=== PATIENT | male | born 1990 | race Caucasian/White ===

== ENCOUNTER 2018-12-26 14:42 | Inpatient (IN) | payer OTHER ==
[2018-12-26 17:15] VITALS: BMI 20.2
--- NOTE | 2018-12-26 18:30 | HP ---
COWS - Scale Resting Pulse: 0= [place] 80 or Below Sweatin=Flushed/Facial Moisture Restless Observation: 1= Difficult to Sit Still Pupil Size: 1= Pupils >than Normal Bone or Joint Aches: 1= Mild Discomfort Runny Nose/ Eye Tearin= Nasal Congestion GI Upset > 30mins: 2= Nausea/Diarrhea Tremor Observation: 2= Slight Tremor Visible Yawning Observation: 1= 1-2x During Session Anxiety or Irritability: 1=Feels Anxious/Irritable Goose Flesh Skin: 0=Smooth Skin COWS Score: 12 CIWA Score Nausea/Vomitin Muscle Tremors: 2 Anxiety: 2 Agitation: 2 Paroxysmal Sweats: 2 Orientation: 0-Oriented Tacttile Disturbances: 1-Very Mild Itch/Numbness Auditory Disturbances: 0-None Visual Disturbances: 0-None Headache: 2-Mild CIWA-Ar Total Score: 13 - Admission Criteria OASAS Guidelines: Admission for Medically Managed Detox: Requires at least one of the followin. CIWA greater than 12 2. Seizures within the past 24 hours 3. Delirium tremens within the past 24 hours 4. Hallucinations within the past 24 hours 5. Acute intervention needed for co occurring medical disorder 6. Acute intervention needed for co occurring psychiatric disorder 7. Severe withdrawal that cannot be handled at a lower level of care (continued vomiting, continued diarrhea, abnormal vital signs) requiring intravenous medication and/or fluids 8. Patient presents the following: CIWA greater than 12 Admission Criteria Met: Admission criteria met Admission ROS [facility] Chief Complaint: I m here for detox from heroine, cocaine and xanax Allergies/Adverse Reactions: Allergies Allergy/AdvReac Type Severity Reaction Status Date / Time No Known Allergies Allergy Verified 12/26/18 17:39 History of Present Illness: 28 y/o male presents for detox from xanax and heroine. He reports most recent detox was at [facility] 5 months ago. Exam Limitations: No Limitations - Ebola screening Have you traveled outside of the country in the last 21 days: No (N) Have you had contact with anyone from an Ebola affected area: No Have you been sick,other than usual withdrawal symptoms: No Do you have a fever: No - Review of Systems Constitutional: Chills, Loss of Appetite, Changes in sleep, Unintentional Wgt. Loss EENT: reports: Nose Congestion, Mouth Pain Respiratory: reports: No Symptoms reported Cardiac: reports: No Symptoms Reported GI: reports: Nausea, Poor Appetite, Abdominal cramping : reports: No Symptoms Reported Musculoskeletal: reports: Back Pain, Muscle Pain, Muscle Weakness Integumentary: reports: Flushing Neuro: reports: Headache, Tremors Endocrine: reports: Unexplained Weight Loss Hematology: reports: No Symptoms Reported Psychiatric: reports: No Sypmtoms Reported, Orientated x3 Other Systems: Reviewed and Negative Patient History - Patient Medical History Hx Anemia: No Hx Asthma: No Hx Chronic Obstructive Pulmonary Disease (COPD): No Hx Cancer: No Hx Cardiac Disorders: No Hx Congestive Heart Failure: No Hx Hypertension: No Hx Hypercholesterolemia: No Hx Pacemaker: No HX Cerebrovascular Accident: No Hx Seizures: No Hx Dementia: No Hx Diabetes: No Hx Gastrointestinal Disorders: No Hx Liver Disease: No Hx Genitourinary Disorders: No Hx Sexually Transmitted Disorders: No Hx Renal Disease (ESRD): No Hx Thyroid Disease: No Hx Human Immunodeficiency Virus (HIV): No Hx Hepatitis C: No Hx Depression: No Hx Suicide Attempt: No Hx Bipolar Disorder: No Hx Schizophrenia: No - Patient Surgical History Past Surgical History: Yes Hx Neurologic Surgery: No Hx Cataract Extraction: No Hx Cardiac Surgery: No Hx Lung Surgery: No Hx Breast Surgery: No Hx Breast Biopsy: No Hx Abdominal Surgery: No Hx Appendectomy: No Hx Cholecystectomy: No Hx Genitourinary Surgery: No Hx Section: No Hx Orthopedic Surgery: Yes (r/t impaired circulation to leg during an overdose) Anesthesia Reaction: No - PPD History Previous Implant?: Yes Documented Results: Negative w/o proof Implanted On Prior R Admission?: No PPD to be Administered?: Yes - Smoking Cessation Smoking history: Current every day smoker Have you smoked in the past 12 months: Yes Aproximately how many cigarettes per day: 4 Hx Chewing Tobacco Use: No Initiated information on smoking cessation: Yes 'Breaking Loose' booklet given: 12/26/18 - Substances abused Heroin Substance route: Injection Frequency: Daily Amount used: 10 BAGS Age of first use: 21 Date of last use: 12/26/18 Alprazolam (Xanax) Substance route: Oral Frequency: Daily Amount used: 6 MG Age of first use: 20 Date of last use: 12/26/18 Cocaine Substance route: Smoking Frequency: Daily Amount used: 1 BAG Age of first use: 17 Date of last use: 12/26/18 Family Disease History - Family Disease History Family History: Denies Admission Physical Exam [facility] - Vital Signs Vital Signs: Vital Signs - 24 hr 12/26/18 16:56 Temperature 96.9 F L Pulse Rate 63 Respiratory 18 Rate Blood Pressure 98/66 - Physical General Appearance: Yes: No Apparent Distress HEENTM: Yes: Hearing grossly Normal, Normal ENT Inspection, Normocephalic, Normal Voice Respiratory: Yes: Chest Non-Tender, Lungs Clear, Normal Breath Sounds, No Respiratory Distress, No Accessory Muscle Use Neck: Yes: No masses,lesions,Nodules, Supple Breast: Yes: Breast Exam Deferred Cardiology: Yes: Regular Rhythm, Regular Rate, S1, S2 Abdominal: Yes: Normal Bowel Sounds, Non Tender, Flat, Soft Genitourinary: Yes: Within Normal Limits Back: Yes: Normal Inspection Musculoskeletal: Yes: full range of Motion, Gait Steady, Muscle Pain, Other ( LLL well healed surgical scar) Extremities: Yes: Tremors Neurological: Yes: molder floor II-XII NML intact, Fully Oriented, Alert, Normal Mood/ Affect, Normal Response Integumentary: Yes: Clammy, Track Reynolds - Diagnostic (1) Benzodiazepine abuse Current Visit: Yes Status: Acute (2) Heroin dependence Current Visit: Yes Status: Acute (3) Nicotine dependence Current Visit: Yes Status: Acute Qualifiers: Nicotine product type: cigarettes Substance use status: uncomplicated Qualified Code(s): F17.210 - Nicotine dependence, cigarettes, uncomplicated Cleared for Admission [facility] - Detox or Rehab [facility] Level of Care: Medically Managed Detox Regimen/Protocol: Methadone/Valium Breathalyzer - Breathalyzer Breathalyzer: 0 Urine Drug Screen - Test Device Lot number: [id number] Expiration date: 08/27/20 - Control Is test valid?: Yes - Results Drug screen NEGATIVE: No Urine drug screen results: NICHOLAS-Cocaine, FEN-Fentanyl, MOP-Opiates, MTD-Methadone , BZO-Benzodiazepines, BUP-Suboxone Inpatient Rehab Admission - Rehab Decision to Admit Inpatient rehab admission?: No
[2018-12-26] MEDS ORDERED: cloNIDine HCL 0.1 MG TABLET PO PRN (18:36)
[2018-12-26] MEDS ORDERED: MAGNESIUM CITRATE 300 ML BOTTLE PO PRN (18:36)
[2018-12-26] MEDS ORDERED: MELATONIN 5 MG TABLETS PO PRN (18:36)
[2018-12-26] MEDS ORDERED: MAG HYDROX/AL HYDROX/SIMETH 30 ML UNIT-DOSE CUP PO PRN (18:36)
[2018-12-26] MEDS ORDERED: NICOTINE POLACRILEX 2 MG GUM BUC PRN (18:36)
[2018-12-26] MEDS ORDERED: NALOXONE HCL 0.4 MG/ML VIAL IVPUSH PRN (18:36)
[2018-12-26] MEDS ORDERED: METHOCARBAMOL 500 MG TABLET PO PRN (18:36)
[2018-12-26] MEDS ORDERED: clonazePAM 0.5 MG TABLET PO PRN (18:36)
[2018-12-26] MEDS ORDERED: MENTHOL/PHENOL 1 EACH UD MM PRN (18:36)
[2018-12-26] MEDS ORDERED: diazePAM 5 MG TABLET PO ONE (18:36)
[2018-12-26] MEDS ORDERED: BISMUTH SUBSALICYLATE 524 MG/30 ML UD PO PRN (18:36)
[2018-12-26] MEDS ORDERED: MAGNESIUM HYDROX 2400MG/30ML ORAL SUSPENSION 30 ML CUP PO PRN (18:36)
[2018-12-26] MEDS ORDERED: ACETAMINOPHEN 325 MG TABLET (FP) PO PRN (18:36)
[2018-12-26] MEDS ORDERED: METHADONE HCL 10 MG TABLET (FOR DETOX USE ONLY) PO ONE (23:00)
[2018-12-26] MEDS: THIAMINE HCL 100 MG TABLET (FP) PO SCH (23:37)
[2018-12-26] MEDS: diazePAM 5 MG TABLET PO SCH (23:37)
[2018-12-27] MEDS: diazePAM 5 MG TABLET PO SCH ×3 (05:53→22:09)
[2018-12-27 09:29] LABS: BILIRUBIN,TOTAL 0.4 mg/dL (0.2-1); BLOOD UREA NITROGEN 8.2 mg/dL (7-18); CALCIUM 8.3 mg/dL (8.5-10.1); CREATININE 0.9 mg/dL (0.55-1.3); POTASSIUM 4.2 mmol/L (3.5-5.1); TOT PROT 6.7 g/dl (6.4-8.2)
[2018-12-27 09:47] LABS: HEMATOCRIT 41.5 % (35.4-49); HEMOGLOBIN 14.2 GM/dL (11.7-16.9); MCH 28.4 pg (25.7-33.7); MCHC 34.3 g/dl (32.0-35.9); MEAN CELL VOLUME 82.8 fl (80-96); MEAN PLT VOLUME 7.5 fl (7.5-11.1); RBC 5.01 M/mm3 (4.00-5.60); RDW 13.2 % (11.9-15.9); WHITE BLOOD COUNT 4.8 K/mm3 (4.0-10.0)
[2018-12-27] MEDS ORDERED: METHADONE HCL 5 MG TABLET (FOR DETOX USE ONLY) PO ONE (10:00)
[2018-12-27 10:14] LABS: PLATELET COUNT 337 K/MM3 (134-434)
[2018-12-27 10:20] LABS: URINE APPEARANCE TURBID; URINE BILIRUBIN NEGATIVE (NEGATIVE); URINE COLOR YELLOW; URINE GLUCOSE (UA) NEGATIVE (NEGATIVE); URINE KETONE NEGATIVE (NEGATIVE); URINE LEUK ESTERASE NEGATIVE (NEGATIVE); URINE NITRITE NEGATIVE (NEGATIVE); URINE PROTEIN NEGATIVE (NEGATIVE); URINE UROBILINOGEN 0.2 mg/dL (0.2-1.0)
[2018-12-27] MEDS: PRENATAL VITAMINS W/ FOLIC ACID TABLET (FP) PO SCH (10:58)
[2018-12-27] MEDS: IBUPROFEN 400 MG TABLET (FP) PO PRN ×2 (12:13→22:10)
[2018-12-27] MEDS: AMOXICILLIN 500 MG CAPSULE (FP) PO SCH ×2 (13:59→22:09)
--- NOTE | 2018-12-27 14:53 | PN ---
S CIWA - CIWA Score Nausea/Vomitin Muscle Tremors: 3 Anxiety: 3 Agitation: 3 Paroxysmal Sweats: 3 Orientation: 0-Oriented Tacttile Disturbances: 0-None Auditory Disturbances: 0-None Visual Disturbances: 0-None Headache: 0-None Present CIWA-Ar Total Score: 14 [facility] COWS - Scale Resting Pulse: 0= [place] 80 or Below Sweatin= Chills/Flushing Restless Observation: 3= Extraneous Movement Pupil Size: 0= Normal to Room Light Bone or Joint Aches: 2= Severe Diffuse Aches Runny Nose/ Eye Tearin= Runny Nose/Eyes GI Upset > 30mins: 2= Nausea/Diarrhea Tremor Observation of Outstretched Hands: 2= Slight Tremor Visible Yawning Observation: 0= None Anxiety or Irritability: 2=Irritable/Anxious Goose Flesh Skin: 0=Smooth Skin COWS Score: 14 [facility] Progress Note (SOAP) Subjective: Anxious, perfuse sweating. Patient c/o gum pain. Objective: 12/27/18 14:49 Last Vital Signs Temp Pulse Resp BP Pulse Ox 98.1 F 60 17 127/89 12/27/18 14:30 12/27/18 14:30 12/27/18 14:30 12/27/18 14:30 PE: Mouth: moist mucous membrane, gum surrounding wisdom teeth bilateral bottom is moderately swollen, no drainage/discharge noted, no cavities noted Laboratory Tests 12/27/18 12/27/18 12/27/18 07:30 07:30 07:30 WBC 4.8 RBC 5.01 Hgb 14.2 Hct 41.5 MCV 82.8 MCH 28.4 MCHC 34.3 RDW 13.2 Plt Count 337 MPV 7.5 Sodium 140 Potassium 4.2 Chloride 106 Carbon Dioxide 29 Anion Gap 5 L BUN 8.2 Creatinine 0.9 Est GFR (CKD-EPI)AfAm 136.14 Est GFR (CKD-EPI)NonAf 117.46 Random Glucose 103 Calcium 8.3 L Total Bilirubin 0.4 AST 11 L ALT 21 Alkaline Phosphatase 67 Total Protein 6.7 Albumin 3.0 L Urine Color Urine Appearance Urine pH Ur Specific [place] Urine Protein Urine Glucose (UA) Urine Ketones Urine Blood Urine Nitrite Urine Bilirubin Urine Urobilinogen Ur Leukocyte Esterase RPR Titer Nonreactive 12/27/18 08:40 WBC RBC Hgb Hct MCV MCH MCHC RDW Plt Count MPV Sodium Potassium Chloride Carbon Dioxide Anion Gap BUN Creatinine Est GFR (CKD-EPI)AfAm Est GFR (CKD-EPI)NonAf Random Glucose Calcium Total Bilirubin AST ALT Alkaline Phosphatase Total Protein Albumin Urine Color Yellow Urine Appearance Turbid Urine pH 6.0 Ur Specific [place] 1.028 Urine Protein Negative Urine Glucose (UA) Negative Urine Ketones Negative Urine Blood Negative Urine Nitrite Negative Urine Bilirubin Negative Urine Urobilinogen 0.2 Ur Leukocyte Esterase Negative RPR Titer Labs reviewed Assessment: 12/27/18 14:53 Withdrawal symptoms Noted with dental infection Plan: Continue detox Encouraged PO water intake Dental infection: tylenol/motrin prn pain Peridex solution 15ml bid swish and spit Amoxicillin 500mg PO q8hr TID x 7 days Instructed to follow up with his Dentist post discharge
[2018-12-27] MEDS: CHLORHEXIDINE GLUCONATE 0.12% 15ML CUP MM SCH ×2 (15:08→22:10)
[2018-12-27] MEDS: ACETAMINOPHEN 325 MG TABLET (FP) PO PRN (15:10)
[2018-12-27] MEDS: THIAMINE HCL 100 MG TABLET (FP) PO SCH (22:10)
--- NOTE | 2018-12-28 00:08 | EKG ---
Test Reason : Blood Pressure : / mmHG Vent. Rate : 058 BPM Atrial Rate : 058 BPM P-R Int : 142 ms QRS Dur : 096 ms QT Int : 390 ms P-R-T Axes : 042 091 042 degrees QTc Int : 382 ms SINUS BRADYCARDIA RIGHTWARD AXIS BORDERLINE ECG NO PREVIOUS ECGS AVAILABLE Confirmed by MD Norma, [place] ([id number]) on 12/28/2018 12:07:33 AM Referred By: Kenny Sullivan Confirmed By:London Green MD
[2018-12-28] MEDS: AMOXICILLIN 500 MG CAPSULE (FP) PO SCH ×3 (05:53→22:42)
[2018-12-28] MEDS: IBUPROFEN 400 MG TABLET (FP) PO PRN ×2 (05:55→13:27)
[2018-12-28] MEDS: diazePAM 5 MG TABLET PO PRN ×3 (06:00→18:07)
[2018-12-28] MEDS ORDERED: METHADONE HCL 10 MG TABLET (FOR DETOX USE ONLY) PO ONE (10:00)
[2018-12-28] MEDS: CHLORHEXIDINE GLUCONATE 0.12% 15ML CUP MM SCH (10:05)
[2018-12-28] MEDS: diazePAM 5 MG TABLET PO SCH ×2 (10:38→22:44)
[2018-12-28] MEDS: PRENATAL VITAMINS W/ FOLIC ACID TABLET (FP) PO SCH (10:38)
[2018-12-28] MEDS: ACETAMINOPHEN 325 MG TABLET (FP) PO PRN ×2 (10:40→18:07)
[2018-12-28] MEDS ORDERED: CHLORHEXIDINE GLUCONATE 118 ML MOUTHWASH MM SCH (12:30)
[2018-12-28] MEDS ORDERED: LIDOCAINE VISCOUS 2% ORAL/TOP 20 ML UNIT-DOSE CUP MM PRN (12:30)
--- NOTE | 2018-12-28 12:33 | PN ---
[facility] CIWA - CIWA Score Nausea/Vomitin-No Nausea/No Vomiting Muscle Tremors: 2 Anxiety: 1-Mildly Anxious Agitation: 1-Slight > Activity Paroxysmal Sweats: 3 Orientation: 0-Oriented Tacttile Disturbances: 0-None Auditory Disturbances: 0-None Visual Disturbances: 0-None Headache: 0-None Present CIWA-Ar Total Score: 7 [facility] COWS - Scale Resting Pulse: 0= [place] 80 or Below Sweatin=Flushed/Facial Moisture Restless Observation: 0= Sits Still Pupil Size: 0= Normal to Room Light Bone or Joint Aches: 1= Mild Discomfort Runny Nose/ Eye Tearin= Nasal Congestion GI Upset > 30mins: 0= None Tremor Observation of Outstretched Hands: 1= Tremor [place], Not Seen Yawning Observation: 1= 1-2x During Session Anxiety or Irritability: 1=Feels Anxious/Irritable Goose Flesh Skin: 0=Smooth Skin COWS Score: 7 [facility] Progress Note (SOAP) Subjective: sweats pain when I swallow due to my infection Objective: 12/28/18 12:32 Vital Signs Temperature 97.0 F L 12/28/18 09:20 Pulse Rate 63 12/28/18 09:20 Respiratory Rate 17 12/28/18 09:20 Blood Pressure 132/90 12/28/18 09:20 O2 Sat by Pulse Oximetry (%) Laboratory Tests 12/27/18 12/27/18 12/27/18 07:30 07:30 07:30 WBC 4.8 RBC 5.01 Hgb 14.2 Hct 41.5 MCV 82.8 MCH 28.4 MCHC 34.3 RDW 13.2 Plt Count 337 MPV 7.5 Sodium 140 Potassium 4.2 Chloride 106 Carbon Dioxide 29 Anion Gap 5 L BUN 8.2 Creatinine 0.9 Est GFR (CKD-EPI)AfAm 136.14 Est GFR (CKD-EPI)NonAf 117.46 Random Glucose 103 Calcium 8.3 L Total Bilirubin 0.4 AST 11 L ALT 21 Alkaline Phosphatase 67 Total Protein 6.7 Albumin 3.0 L Urine Color Urine Appearance Urine pH Ur Specific [place] Urine Protein Urine Glucose (UA) Urine Ketones Urine Blood Urine Nitrite Urine Bilirubin Urine Urobilinogen Ur Leukocyte Esterase RPR Titer Nonreactive 12/27/18 08:40 WBC RBC Hgb Hct MCV MCH MCHC RDW Plt Count MPV Sodium Potassium Chloride Carbon Dioxide Anion Gap BUN Creatinine Est GFR (CKD-EPI)AfAm Est GFR (CKD-EPI)NonAf Random Glucose Calcium Total Bilirubin AST ALT Alkaline Phosphatase Total Protein Albumin Urine Color Yellow Urine Appearance Turbid Urine pH 6.0 Ur Specific [place] 1.028 Urine Protein Negative Urine Glucose (UA) Negative Urine Ketones Negative Urine Blood Negative Urine Nitrite Negative Urine Bilirubin Negative Urine Urobilinogen 0.2 Ur Leukocyte Esterase Negative RPR Titer aaox3 ambulating no acute distress Assessment: 12/28/18 12:32 mild withdrawal sx Plan: continue detox increase fluids lidocaine s/s prn motrin 800mg tid prn d/c in am
[2018-12-28] MEDS: THIAMINE HCL 100 MG TABLET (FP) PO SCH (22:42)
[2018-12-29] MEDS ORDERED: diazePAM 5 MG TABLET PO SCH (06:00)
[2018-12-29] MEDS ORDERED: METHADONE HCL 5 MG TABLET (FOR DETOX USE ONLY) PO ONE (06:00)
[2018-12-29] MEDS: AMOXICILLIN 500 MG CAPSULE (FP) PO SCH ×2 (07:24→12:59)
--- NOTE | 2018-12-29 09:22 | DS ---
[facility] Detox Discharge Summary Admission Date: 12/26/18 - History Present History: Opioid Dependence, Sedative Dependence - Physical Exam Results Vital Signs: Vital Signs Temperature 96.4 F L 12/29/18 07:37 Pulse Rate 53 L 12/29/18 07:37 Respiratory Rate 16 12/29/18 07:37 Blood Pressure 123/87 12/29/18 07:37 O2 Sat by Pulse Oximetry (%) - Treatment Hospital Course: Detox Protocol Followed, Detoxed Safely, Responded well, Discharged Condition Good, Rehab Referral Accepted - Medication Discharge Medications: Ambulatory Orders NK [No Known Home Medication] 12/26/18 - Diagnosis (1) Benzodiazepine abuse Current Visit: Yes Status: Chronic (2) Heroin dependence Current Visit: Yes Status: Chronic (3) Nicotine dependence Current Visit: Yes Status: Chronic Qualifiers: Nicotine product type: cigarettes Substance use status: uncomplicated Qualified Code(s): F17.210 - Nicotine dependence, cigarettes, uncomplicated - AMA Did Patient Leave Against Medical Advice: No (pt referred [facility])
[2018-12-29] MEDS ORDERED: ONDANSETRON *ODT* 4 MG TABLET SL PRN (09:23)
[2018-12-29 09:30] VITALS: BP 113/76; PULSE 54; TEMP 97.9
[2018-12-29] MEDS: PRENATAL VITAMINS W/ FOLIC ACID TABLET (FP) PO SCH (10:42)
[2018-12-29] MEDS: diazePAM 5 MG TABLET PO PRN (10:45)
[2018-12-29] MEDS: IBUPROFEN 400 MG TABLET (FP) PO PRN (10:45)
== END 2018-12-29 13:04 | disposition other institution (70) | DRG 773 ==
LOC: YASAS 14:42 → Y6N 19:08
PROVIDERS: ADMIT Surgery; ATTEND Surgery
PROC: HZ2ZZZZ Detoxification Services for Substance Abuse Treatment (ICD-10-PCS; principal; 2018-12-26)
DX: F11.23 Opioid dependence with withdrawal (principal); F13.20 Sedative, hypnotic or anxiolytic dependence, uncomplicated; F14.20 Cocaine dependence, uncomplicated; F17.210 Nicotine dependence, cigarettes, uncomplicated; K04.7 Periapical abscess without sinus
CPT/HCPCS: 36415; 80053; 81003; 85027; 86593; 93005; 93010

== ENCOUNTER 2018-12-29 13:17 | Inpatient (IN) | payer OTHER ==
[2018-12-29] MEDS ORDERED: guaiFENesin 200 MG/10 ML 10 ML UNIT-DOSE CUPS PO PRN (14:25)
[2018-12-29] MEDS ORDERED: MAGNESIUM HYDROX 2400MG/30ML ORAL SUSPENSION 30 ML CUP PO PRN (14:25)
[2018-12-29] MEDS ORDERED: MAGNESIUM CITRATE 300 ML BOTTLE PO PRN (14:25)
[2018-12-29] MEDS ORDERED: MAG HYDROX/AL HYDROX/SIMETH 30 ML UNIT-DOSE CUP PO PRN (14:25)
[2018-12-29] MEDS ORDERED: LOPERAMIDE HCL 2 MG CAPSULE PO PRN (14:25)
[2018-12-29] MEDS ORDERED: MENTHOL/PHENOL 1 EACH UD MM PRN (14:25)
[2018-12-29] MEDS ORDERED: ACETAMINOPHEN 325 MG TABLET (FP) PO PRN (14:25)
[2018-12-29] MEDS ORDERED: P-EPHED 60MG/TRIPROLIDI 2.5MG TABLET PO PRN (14:25)
--- NOTE | 2018-12-29 14:25 | HP ---
[facility] Rehab Assess/Revision - Admission History Admitted to Rehab from: [address] - Vital signs Vital Signs: Vital Signs Period Temp Pulse Resp BP Sys/Arellano Pulse Ox Last 24 Hr 98.2 F 91 18 107/63 - Findings Detox History & Physical reviewed: Yes Concur with findings: Yes Inpatient Rehab Admission - Rehab Decision to Admit Inpatient rehab admission?: Yes - Initial Determination Are CD services needed?: Yes Free of communicable disease: Yes Not in need of hospitalization: Yes - Rehab Admission Criteria Previous failed treatment: Yes Poor recovery environment: Yes Comorbidities: Yes Lacks judgement: Yes Patient is meeting Inpatient Rehab admission criteria:: Yes
[2018-12-29] MEDS ORDERED: LIDOCAINE VISCOUS 2% ORAL/TOP 20 ML UNIT-DOSE CUP MM PRN (14:28)
--- NOTE | 2018-12-29 15:39 | PN ---
[facility] Progress Note Note: PT WAS ADMITTED TO REHAB TODAY FROM [facility]. PT REPORTS HE IS ON SUBOXONE 12 MG SL DAILY AT [facility] WITH DR. NI KELLY . LAST DOSED ON 12/25/18 AND CAME INTO [facility]/DETOX 12/26/18. PT NOW REQUESTING TO RESTART HIS SUBOXONE. PT IS ALERT O X 3. NAD. D/W PT PROTOCOL FOR RESTARTING SUBOXONE AND PT VERBALIZED UNDERSTANDING AND SIDE EFFECTS OF PRECIPITATED WITHDRAWAL SX SOON AFTER METHADONE TREATMENT AND WILLING TO WAIT THE COURSE. Vital Signs - 24 hr 12/29/18 14:02 Temperature 98.2 F Pulse Rate 91 H Respiratory 18 Rate Blood Pressure 107/63 PLAN:MONITOR W/S POST DETOX. RESTART SUBOXONE AFTER 48-72 HRS POST DETOX.
[2018-12-29] MEDS: IBUPROFEN 400 MG TABLET (FP) PO PRN (17:44)
[2018-12-29] MEDS: THIAMINE HCL 100 MG TABLET (FP) PO SCH (21:52)
[2018-12-29] MEDS: AMOXICILLIN 500 MG CAPSULE (FP) PO SCH (21:52)
[2018-12-30] MEDS: AMOXICILLIN 500 MG CAPSULE (FP) PO SCH ×3 (06:23→21:44)
[2018-12-30] MEDS: IBUPROFEN 400 MG TABLET (FP) PO PRN (06:23)
[2018-12-30] MEDS: NICOTINE 21 MG/24 HOURS TOPICAL PATCH TD SCH (10:29)
[2018-12-30] MEDS: PRENATAL VITAMINS W/ FOLIC ACID TABLET (FP) PO SCH (10:29)
[2018-12-30] MEDS: hydrOXYzine PAMOATE 50 MG CAPSULE (FP) PO PRN ×2 (10:30→21:44)
[2018-12-30] MEDS: MELATONIN 5 MG TABLETS PO PRN (21:44)
[2018-12-30] MEDS: THIAMINE HCL 100 MG TABLET (FP) PO SCH (21:44)
[2018-12-31] MEDS: AMOXICILLIN 500 MG CAPSULE (FP) PO SCH ×3 (06:24→21:26)
[2018-12-31] MEDS: NICOTINE 21 MG/24 HOURS TOPICAL PATCH TD SCH (10:22)
[2018-12-31] MEDS: PRENATAL VITAMINS W/ FOLIC ACID TABLET (FP) PO SCH (10:22)
--- NOTE | 2018-12-31 10:43 | PN ---
[facility] COWS - Scale Resting Pulse: 0= [place] 80 or Below Sweatin= Chills/Flushing Restless Observation: 1= Difficult to Sit Still Pupil Size: 1= Pupils >than Normal (5MM) Bone or Joint Aches: 4=Acute Joint/Muscle Pain Runny Nose/ Eye Tearin= Nasal Congestion GI Upset > 30mins: 2= Nausea/Diarrhea (DIARRHEA, NO N/V) Tremor Observation of Outstretched Hands: 2= Slight Tremor Visible Yawning Observation: 0= None Anxiety or Irritability: 1=Feels Anxious/Irritable Goose Flesh Skin: 3=Piloerection COWS Score: 16 [facility] Progress Note (SOAP) Subjective: PT C/O CRAVINGS AND WITHDRAWAL SX - GOOSE BUMPS, DIARRHEA, NASAL CONGESTION Objective: 12/31/18 10:46 Vital Signs - 24 hr 12/31/18 12/31/18 12/31/18 00:30 03:30 06:57 Temperature 97.5 F L Pulse Rate 74 Respiratory 18 18 18 Rate Blood Pressure 112/80 HEENT:NORMOCEPHALIC;WATERY EYES CARDIAC:S1 S2 RRR LUNGS:CTA,BILATERALLY ABDOMEN:SOFT,NT,ND EXT:NO E/C/C Assessment: 12/31/18 10:49 OUD CRAVINGS PROTRACTED W/S Plan: D/W PT WILL GIVE SUBOXONE 2 MG/0.5 MG SL NOW AND REASSESS AFTER LUNCH TODAY FOR ADDITIONAL DOSE INCREASE OF SUBOXONE 2 MG/0.5 MG SL. RE-EVALUATE FOR INCREASED MAINTENANCE DOSE NEEDED PER SYMPTOMS
[2018-12-31] MEDS ORDERED: BUPRENORPHINE/NALOXONE 2 MG/0.5 MG FILM PACKET SL ONE ×2 (10:45→14:18)
[2018-12-31] MEDS: IBUPROFEN 400 MG TABLET (FP) PO PRN ×2 (12:58→21:29)
--- NOTE | 2018-12-31 14:17 | PN ---
[facility] COWS - Scale Resting Pulse: 0= [place] 80 or Below Sweatin=Flushed/Facial Moisture (sweaty palms) Restless Observation: 0= Sits Still Pupil Size: 0= Normal to Room Light (4mm) Bone or Joint Aches: 4=Acute Joint/Muscle Pain Runny Nose/ Eye Tearin= None GI Upset > 30mins: 0= None Tremor Observation of Outstretched Hands: 2= Slight Tremor Visible Yawning Observation: 0= None Anxiety or Irritability: 2=Irritable/Anxious Goose Flesh Skin: 0=Smooth Skin COWS Score: 10 [facility] Progress Note (SOAP) Subjective: PT REQUESTING INCREASED DOSE FOR SX RELIEF. Objective: 12/31/18 14:28 COWS SCORE 10 Assessment: 12/31/18 14:28 W/S Plan: SUBOXONE 2MG/0.5 MG SL NOW. START SUBOXONE 4MG/1MG SL DAILY ON 01/01/19
[2018-12-31] MEDS: THIAMINE HCL 100 MG TABLET (FP) PO SCH (21:26)
[2018-12-31] MEDS: MELATONIN 5 MG TABLETS PO PRN (21:27)
[2018-12-31] MEDS: hydrOXYzine PAMOATE 50 MG CAPSULE (FP) PO PRN (21:27)
[2019-01-01] MEDS: AMOXICILLIN 500 MG CAPSULE (FP) PO SCH ×3 (06:44→21:33)
[2019-01-01] MEDS: NICOTINE 21 MG/24 HOURS TOPICAL PATCH TD SCH (10:16)
[2019-01-01] MEDS: IBUPROFEN 400 MG TABLET (FP) PO PRN ×2 (10:18→21:33)
[2019-01-01] MEDS: PRENATAL VITAMINS W/ FOLIC ACID TABLET (FP) PO SCH (10:18)
[2019-01-01] MEDS: hydrOXYzine PAMOATE 50 MG CAPSULE (FP) PO PRN ×2 (10:18→21:35)
[2019-01-01] MEDS: BUPRENORPHINE/NALOXONE 2 MG/0.5 MG FILM PACKET SL SCH (10:19)
[2019-01-01] MEDS: THIAMINE HCL 100 MG TABLET (FP) PO SCH (21:33)
[2019-01-01] MEDS: MELATONIN 5 MG TABLETS PO PRN (21:35)
[2019-01-02] MEDS: AMOXICILLIN 500 MG CAPSULE (FP) PO SCH ×3 (06:17→21:55)
[2019-01-02] MEDS: PRENATAL VITAMINS W/ FOLIC ACID TABLET (FP) PO SCH (10:02)
[2019-01-02] MEDS: NICOTINE 21 MG/24 HOURS TOPICAL PATCH TD SCH (10:02)
[2019-01-02] MEDS: BUPRENORPHINE/NALOXONE 2 MG/0.5 MG FILM PACKET SL SCH (10:03)
[2019-01-02] MEDS: IBUPROFEN 400 MG TABLET (FP) PO PRN (14:07)
[2019-01-02] MEDS: THIAMINE HCL 100 MG TABLET (FP) PO SCH (21:55)
[2019-01-03] MEDS: AMOXICILLIN 500 MG CAPSULE (FP) PO SCH ×3 (06:20→21:45)
[2019-01-03] MEDS: IBUPROFEN 400 MG TABLET (FP) PO PRN (10:19)
[2019-01-03] MEDS: PRENATAL VITAMINS W/ FOLIC ACID TABLET (FP) PO SCH (10:19)
[2019-01-03] MEDS: BUPRENORPHINE/NALOXONE 2 MG/0.5 MG FILM PACKET SL SCH (10:19)
[2019-01-03] MEDS: NICOTINE 21 MG/24 HOURS TOPICAL PATCH TD SCH (10:19)
[2019-01-03] MEDS: THIAMINE HCL 100 MG TABLET (FP) PO SCH (21:45)
[2019-01-04] MEDS: AMOXICILLIN 500 MG CAPSULE (FP) PO SCH ×2 (06:17→14:48)
--- NOTE | 2019-01-04 10:10 | PN ---
S Progress Note Note: pt requesting increase suboxone dose stating sweating, anxiety. Reports he was on 12 mg sl daily. States "suboxone 8mg/2mg will be fine" for now. Vital Signs 01/04/19 01/04/19 03:30 07:27 Temperature 98.0 F Pulse Rate 73 Respiratory 18 18 Rate Blood Pressure 119/84 protracted w/s cravings plan: increase suboxone 8 mg/2mg sl daily, first dose now.
[2019-01-04] MEDS ORDERED: BUPRENORPHINE/NALOXONE 8 MG/2 MG FILM PACKET SL ONE (11:00)
[2019-01-04] MEDS: PRENATAL VITAMINS W/ FOLIC ACID TABLET (FP) PO SCH (11:01)
[2019-01-04] MEDS: NICOTINE 21 MG/24 HOURS TOPICAL PATCH TD SCH (11:01)
[2019-01-04] MEDS: BUPRENORPHINE/NALOXONE 2 MG/0.5 MG FILM PACKET SL SCH (11:03)
[2019-01-04] MEDS: THIAMINE HCL 100 MG TABLET (FP) PO SCH (21:51)
[2019-01-05] MEDS: BUPRENORPHINE/NALOXONE 8 MG/2 MG FILM PACKET SL SCH (06:14)
[2019-01-05] MEDS ORDERED: AMOXICILLIN 500 MG CAPSULE (FP) PO ONE (10:00)
[2019-01-05] MEDS: NICOTINE 21 MG/24 HOURS TOPICAL PATCH TD SCH (10:53)
[2019-01-05] MEDS: PRENATAL VITAMINS W/ FOLIC ACID TABLET (FP) PO SCH (10:53)
[2019-01-05] MEDS: AMOXICILLIN 500 MG CAPSULE (FP) PO SCH ×2 (14:17→22:04)
[2019-01-05] MEDS: THIAMINE HCL 100 MG TABLET (FP) PO SCH (22:04)
[2019-01-05] MEDS: IBUPROFEN 400 MG TABLET (FP) PO PRN (22:05)
[2019-01-06] MEDS: BUPRENORPHINE/NALOXONE 8 MG/2 MG FILM PACKET SL SCH (06:18)
[2019-01-06] MEDS: AMOXICILLIN 500 MG CAPSULE (FP) PO SCH ×3 (06:18→21:46)
[2019-01-06] MEDS: PRENATAL VITAMINS W/ FOLIC ACID TABLET (FP) PO SCH (10:50)
[2019-01-06] MEDS: IBUPROFEN 400 MG TABLET (FP) PO PRN (10:51)
[2019-01-06] MEDS: NICOTINE 21 MG/24 HOURS TOPICAL PATCH TD SCH (10:52)
[2019-01-06] MEDS: THIAMINE HCL 100 MG TABLET (FP) PO SCH (21:47)
[2019-01-07] MEDS: AMOXICILLIN 500 MG CAPSULE (FP) PO SCH ×3 (06:18→21:31)
[2019-01-07] MEDS: BUPRENORPHINE/NALOXONE 8 MG/2 MG FILM PACKET SL SCH (06:18)
[2019-01-07] MEDS: NICOTINE 21 MG/24 HOURS TOPICAL PATCH TD SCH (10:52)
[2019-01-07] MEDS: PRENATAL VITAMINS W/ FOLIC ACID TABLET (FP) PO SCH (10:52)
[2019-01-07] MEDS: MELATONIN 5 MG TABLETS PO PRN (21:31)
[2019-01-07] MEDS: THIAMINE HCL 100 MG TABLET (FP) PO SCH (21:31)
[2019-01-08] MEDS: BUPRENORPHINE/NALOXONE 8 MG/2 MG FILM PACKET SL SCH (06:06)
[2019-01-08] MEDS: AMOXICILLIN 500 MG CAPSULE (FP) PO SCH ×3 (06:06→21:32)
[2019-01-08] MEDS: NICOTINE 21 MG/24 HOURS TOPICAL PATCH TD SCH (11:00)
[2019-01-08] MEDS: PRENATAL VITAMINS W/ FOLIC ACID TABLET (FP) PO SCH (11:00)
[2019-01-08] MEDS: THIAMINE HCL 100 MG TABLET (FP) PO SCH (21:32)
[2019-01-08] MEDS: MELATONIN 5 MG TABLETS PO PRN (21:33)
[2019-01-09] MEDS: AMOXICILLIN 500 MG CAPSULE (FP) PO SCH ×3 (06:19→22:27)
[2019-01-09] MEDS: BUPRENORPHINE/NALOXONE 8 MG/2 MG FILM PACKET SL SCH (06:19)
[2019-01-09] MEDS: PRENATAL VITAMINS W/ FOLIC ACID TABLET (FP) PO SCH (10:06)
[2019-01-09] MEDS: NICOTINE 21 MG/24 HOURS TOPICAL PATCH TD SCH (10:07)
[2019-01-09] MEDS: THIAMINE HCL 100 MG TABLET (FP) PO SCH (22:27)
[2019-01-10] MEDS: BUPRENORPHINE/NALOXONE 8 MG/2 MG FILM PACKET SL SCH (06:08)
[2019-01-10] MEDS: AMOXICILLIN 500 MG CAPSULE (FP) PO SCH ×3 (06:08→21:32)
[2019-01-10] MEDS: PRENATAL VITAMINS W/ FOLIC ACID TABLET (FP) PO SCH (10:28)
[2019-01-10] MEDS: NICOTINE 21 MG/24 HOURS TOPICAL PATCH TD SCH (10:28)
[2019-01-10] MEDS: THIAMINE HCL 100 MG TABLET (FP) PO SCH (21:32)
[2019-01-11] MEDS: BUPRENORPHINE/NALOXONE 8 MG/2 MG FILM PACKET SL SCH (06:53)
[2019-01-11] MEDS: AMOXICILLIN 500 MG CAPSULE (FP) PO SCH ×3 (06:53→22:18)
[2019-01-11] MEDS: NICOTINE 21 MG/24 HOURS TOPICAL PATCH TD SCH (10:37)
[2019-01-11] MEDS: PRENATAL VITAMINS W/ FOLIC ACID TABLET (FP) PO SCH (10:37)
[2019-01-11] MEDS: THIAMINE HCL 100 MG TABLET (FP) PO SCH (22:18)
[2019-01-12] MEDS ORDERED: BUPRENORPHINE/NALOXONE 8 MG/2 MG FILM PACKET SL SCH (06:00)
[2019-01-12] MEDS: AMOXICILLIN 500 MG CAPSULE (FP) PO SCH (06:40)
[2019-01-12 07:04] VITALS: BP 104/72; PULSE 77; TEMP 97.2
--- NOTE | 2019-01-12 09:49 | PN ---
[facility] Progress Note (SOAP) Subjective: Patient to be discharged today. Hospital Course: Patient admitted to drug rehab on 12/29. Attended group therapy, had individual therapy sessions with his counselor, participated in group activities. He was adherent to his treatment plan and medication regimen during his time in detox. He had a tooth infection and completed a 14 day regimen of amoxicillin. He is unsure whether or not to continue suboxone. Objective: Examination: A+Ox3, no neurological deficits noted, PERRLA, mouth: poor dentition, heart sounds regular, lungs clear, abd soft, +BS, skin clear, ambulates without assistance. 01/12/19 09:50 01/12/19 10:22 Vital Signs Period Temp Pulse Resp BP Sys/Arellano Pulse Ox Last 24 Hr 97.2 F 77 18-20 104/72 01/12/19 10:23 Assessment: Medically stable for discharge. Discharge Dx Benzodiazpine Dependence Heroin Dependence 01/12/19 09:51 01/12/19 09:52 Plan: Coordination of ongoing care: patient will go to [facility], but plans on going [facility] care. Patient is unsure if he will continue with Suboxone in fdc care and is undecided about continuing Suboxone. He will go to [facility] if he decided to continue suboxone. Patient receives medical care at [place], encouraged patient to make an appointment with the clinic within the next 2 weeks. Does not need prescriptions, encouraged to make a dental appointment through [facility].
== END 2019-01-12 10:18 | disposition home or self-care (01) | DRG 772 ==
LOC: YASAS 13:17 → Y5N 13:18 → Y3W 01-08 17:37
PROVIDERS: ADMIT Neuromusculoskeletal Medicine & OMM; ATTEND Neuromusculoskeletal Medicine & OMM
PROC: HZ42ZZZ Group Counseling for Substance Abuse Treatment, Cognitive-Behavioral (ICD-10-PCS; principal; 2018-12-29)
DX: F11.23 Opioid dependence with withdrawal (principal); F13.230 Sedative, hypnotic or anxiolytic dependence with withdrawal, uncomplicated; F17.210 Nicotine dependence, cigarettes, uncomplicated

== ENCOUNTER 2019-03-04 13:22 | Inpatient (IN) | payer OTHER ==
[2019-03-04 18:13] VITALS: BMI 19.5
--- NOTE | 2019-03-04 19:00 | HP ---
COWS - Scale Resting Pulse: 0= [place] 80 or Below Sweatin= Chills/Flushing Restless Observation: 1= Difficult to Sit Still Pupil Size: 0= Normal to Room Light Bone or Joint Aches: 2= Severe Diffuse Aches (neck, lower back, legs) Runny Nose/ Eye Tearin= None GI Upset > 30mins: 0= None Tremor Observation: 2= Slight Tremor Visible Yawning Observation: 0= None Anxiety or Irritability: 2=Irritable/Anxious Goose Flesh Skin: 0=Smooth Skin COWS Score: 8 CIWA Score Nausea/Vomitin-No Nausea/No Vomiting Muscle Tremors: 4-Moderate,w/Arms Extend Anxiety: 4-Mod. Anxious/Guarded Agitation: 4-Moderately Restless Paroxysmal Sweats: No Perspiration Orientation: 2-Disoriented Date<2 days Tacttile Disturbances: 0-None Auditory Disturbances: 0-None Visual Disturbances: 0-None Headache: 0-None Present CIWA-Ar Total Score: 14 - Admission Criteria OASAS Guidelines: Admission for Medically Managed Detox: Requires at least one of the followin. CIWA greater than 12 2. Seizures within the past 24 hours 3. Delirium tremens within the past 24 hours 4. Hallucinations within the past 24 hours 5. Acute intervention needed for co occurring medical disorder 6. Acute intervention needed for co occurring psychiatric disorder 7. Severe withdrawal that cannot be handled at a lower level of care (continued vomiting, continued diarrhea, abnormal vital signs) requiring intravenous medication and/or fluids 8. Admission [facility] Chief Complaint: detox from heroin and benzo Allergies/Adverse Reactions: Allergies Allergy/AdvReac Type Severity Reaction Status Date / Time No Known Allergies Allergy Verified 03/04/19 18:07 History of Present Illness: 28M w/ pmh of LLE compartment syndrome s/p fasciotomy(3ys prior), presenting to [facility], [place] for detox from heroin and benzo. Takes heroin(IV) 10-15bags daily for 2- 3ys. Last usage ~0400. OD'd x18, last OD was 1mo prior. Denies bacteremia, abscess. Takes cocaine(IV) $60, a few times a month. Denies intentional fentanyl usage. Takes xanax and klonopin, initially prescribed for anxiety but had rx stopped last month. Takes 4-6mg street xanax daily, last dose was yesterday 0900. Was on suboxone but provider stopped last month. Has had tremors. Denies seizures. Denies EtOH. Denies MJ. Smokes 2-4cig/daily. Denies methadone clinic. Relapsed to substances after completing rehab in December 2018. Incarcerated for 6mo for drug-related crime at 20y/o. Denies being sexually active. Denies SI, HI. Homeless on streets and shelters for x2ys. Estranged from family in [place]. No source of income. Exam Limitations: No Limitations - Ebola screening Have you traveled outside of the country in the last 21 days: No (N) Have you had contact with anyone from an Ebola affected area: No Do you have a fever: No - Review of Systems EENT: denies: Blurred Vision, Double Vision Respiratory: denies: Cough, Wheezing Cardiac: reports: No Symptoms Reported GI: denies: Nausea, Vomiting : denies: Burning, Dysuria, Discharge Musculoskeletal: reports: Muscle Pain (Left calf, intermittently) Neuro: denies: Headache, Numbness Psychiatric: reports: Agitated, Anxious Patient History - Patient Medical History Hx Anemia: No Hx Asthma: No Hx Chronic Obstructive Pulmonary Disease (COPD): No Hx Cancer: No Hx Cardiac Disorders: No Hx Congestive Heart Failure: No Hx Hypertension: No Hx Hypercholesterolemia: No Hx Pacemaker: No HX Cerebrovascular Accident: No Hx Seizures: No Hx Dementia: No Hx Diabetes: No Hx Gastrointestinal Disorders: No Hx Liver Disease: No Hx Genitourinary Disorders: No Hx Sexually Transmitted Disorders: No Hx Renal Disease (ESRD): No Hx Thyroid Disease: No Hx Human Immunodeficiency Virus (HIV): No Hx Hepatitis C: No Hx Depression: No Hx Suicide Attempt: No Hx Bipolar Disorder: No Hx Schizophrenia: No - Patient Surgical History Past Surgical History: Yes Hx Neurologic Surgery: No Hx Cataract Extraction: No Hx Cardiac Surgery: No Hx Lung Surgery: No Hx Breast Surgery: No Hx Breast Biopsy: No Hx Abdominal Surgery: No Hx Appendectomy: No Hx Cholecystectomy: No Hx Genitourinary Surgery: No Hx Section: No Hx Orthopedic Surgery: Yes (r/t impaired circulation to leg during an overdose) Anesthesia Reaction: No - PPD History Date: 12/28/18 Results: 0MM - Smoking Cessation Smoking history: Current every day smoker Have you smoked in the past 12 months: Yes Aproximately how many cigarettes per day: 4 Hx Chewing Tobacco Use: No Initiated information on smoking cessation: No - Substance & Tx. History Hx Alcohol Use: No Hx Substance Use: Yes Substance Use Type: Cocaine, Heroin, Marijuana, Opiates, Prescribed (benzo) - Substances abused Heroin Substance route: Injection Frequency: Daily Amount used: 10 BAGS Age of first use: 21 Date of last use: 03/04/19 Alprazolam (Xanax) Substance route: Oral Frequency: Daily Amount used: 6 MG Age of first use: 20 Date of last use: 03/03/19 Cocaine Substance route: Smoking Frequency: Daily Amount used: 1 BAG Age of first use: 17 Date of last use: 03/04/19 Family Disease History - Family Disease History Other Family History: none Admission Physical Exam S - Vital Signs Vital Signs: Vital Signs - 24 hr 03/04/19 18:08 Temperature 97.5 F L Pulse Rate 69 Respiratory 16 Rate Blood Pressure 112/72 - Physical General Appearance: Yes: No Apparent Distress, Thin. No: Mild Distress, Tremorous, Irritable, Sweating HEENTM: Yes: Normocephalic, Other (Right trapezius with healed-scar). No: Pale Conjunctivae R, Pale Conjunctivae L, Scleral Ictenus R, Scleral Ictenus L Respiratory: Yes: Chest Non-Tender, Lungs Clear, Normal Breath Sounds Neck: Yes: Supple, Trachea in good position Cardiology: Yes: Regular Rate, S1, S2. No: Bradycardia, Tachycardia Abdominal: Yes: Non Tender, Soft. No: Guarding, Rebound Musculoskeletal: Yes: full range of Motion Extremities: Yes: Other (LLE with 20cm well-healed surgical scar at the medial surface of lower leg) Neurological: Yes: Fully Oriented, Alert Breathalyzer - Breathalyzer Breathalyzer: 0 Urine Drug Screen - Test Device Lot number: [id number] Expiration date: 11/27/20 - Control Is test valid?: Yes - Results Drug screen NEGATIVE: No Urine drug screen results: NICHOLAS-Cocaine, FEN-Fentanyl, MOP-Opiates, BUP-Suboxone Inpatient Rehab Admission - Rehab Decision to Admit Inpatient rehab admission?: No
--- NOTE | 2019-03-04 19:50 | PN ---
"Teaching Attending Note Name of Resident: Brendan Rivas ATTENDING PHYSICIAN STATEMENT I saw and evaluated the patient. I reviewed the resident's note and discussed the case with the resident. I agree with the resident's findings and plan as documented. SUBJECTIVE: 28 y.o. male w/ opioid dependence , admits to MAT w/ Suboxone since October 2018 , initially @ [facility] , currently @ [facility] , states rx q 2 weeks , did not get any more rx 2/2 relapse , current daily use 10-15 bags/day IVDU on UE , denies sharing needles , denies abscess , multiple OD 's ( 18 ) , most recently 1 mo ago , Narcan by EMS . Heroin x 8 years , latest use this morning , current symptoms as above , states latest suboxone taken last week cocaine : IVDU every other day fentanyl - denies klonopin rx as below , has used xanax 6 mg yesterday morning . Deneis seizure hx . PMHx : LLE compartment syndrome s/p fasciotomy 3 years ago , Denies EtOH. OBJECTIVE: This report was requested by: Sylvie Galdamez | Reference #: [id number] Others' Prescriptions Patient Name: Kirt Coelho Date: 1990 Address: [address] [place] [address] Sex: Male Rx Written Rx Dispensed Drug Quantity Days Supply Prescriber Name 02/11/2019 02/11/2019 clonazepam 2 mg tablet 30 15 Bennie Anderson MD 02/11/2019 02/11/2019 buprenorphine-naloxone 8-2 mg sl film 30 15 Bennie Anderson MD 01/28/2019 01/28/2019 clonazepam 2 mg tablet 30 15 Bennie Anderson MD 01/28/2019 01/28/2019 buprenorphine-naloxone 8-2 mg sl film 15 15 Bennie Anderson MD Patient Name: Kirt Coelho Date: 1990 Address: [address] [place] [address] Sex: Male Rx Written Rx Dispensed Drug Quantity Days Supply Prescriber Name 02/03/2019 02/03/2019 zubsolv 5.7-1.4 mg tablet sl 15 7 Bennie Anderson MD Patient Name: Kirt Coelho Date: 1990 Address: [address] [place] [address] Sex: Male Rx Written Rx Dispensed Drug Quantity Days Supply Prescriber Name 01/14/2019 01/25/2019 clonazepam 2 mg tablet 15 15 Bennie Anderson MD 01/14/2019 01/14/2019 buprenorphine-naloxone 8-2 mg sl film 15 15 Bennie Anderson MD 11/13/2018 11/13/2018 buprenorphine-naloxone 8-2 mg sl film 30 30 Roland Gardner MD 11/13/2018 11/13/2018 buprenorphine-naloxone 4-1 mg sl film 30 30 Roland Gardner MD Vital Signs - 24 hr 03/04/19 18:08 Temperature 97.5 F L Pulse Rate 69 Respiratory 16 Rate Blood Pressure 112/72 QTc 382 ms 12/26/18 ASSESSMENT AND PLAN: opioid dependence - Methadone detox benzodiazepine use - advised of increased risk of OD w/ concomittant use of opioid agonists including MAT w/ Methadone or Buprenorphine . - prn Clonazepam cocaine abuse- episodic . states does not plan to return to MAT ."
[2019-03-04] MEDS ORDERED: MAG HYDROX/AL HYDROX/SIMETH 30 ML UNIT-DOSE CUP PO PRN (19:59)
[2019-03-04] MEDS ORDERED: MELATONIN 5 MG TABLETS PO PRN (19:59)
[2019-03-04] MEDS ORDERED: BISMUTH SUBSALICYLATE 524 MG/30 ML UD PO PRN (19:59)
[2019-03-04] MEDS ORDERED: ACETAMINOPHEN 325 MG TABLET (FP) PO PRN ×2 (19:59)
[2019-03-04] MEDS ORDERED: IBUPROFEN 400 MG TABLET (FP) PO PRN (19:59)
[2019-03-04] MEDS ORDERED: hydrOXYzine PAMOATE 25 MG CAPSULE (FP) PO PRN (19:59)
[2019-03-04] MEDS ORDERED: NICOTINE POLACRILEX 2 MG GUM BUC PRN (19:59)
[2019-03-04] MEDS ORDERED: MAGNESIUM HYDROX 2400MG/30ML ORAL SUSPENSION 30 ML CUP PO PRN (19:59)
[2019-03-04] MEDS ORDERED: MENTHOL/PHENOL 1 EACH UD MM PRN (19:59)
[2019-03-04] MEDS ORDERED: MAGNESIUM CITRATE 300 ML BOTTLE PO PRN (19:59)
[2019-03-04] MEDS ORDERED: cloNIDine HCL 0.1 MG TABLET PO PRN (20:01)
[2019-03-04] MEDS ORDERED: METHADONE HCL 10 MG TABLET (FOR DETOX USE ONLY) PO ONE (20:45)
[2019-03-04] MEDS: clonazePAM 0.5 MG TABLET PO PRN (21:54)
[2019-03-04] MEDS: THIAMINE HCL 100 MG TABLET (FP) PO SCH (21:54)
[2019-03-05] MEDS ORDERED: METHADONE HCL 5 MG TABLET (FOR DETOX USE ONLY) PO ONE (10:00)
[2019-03-05] MEDS: PRENATAL VITAMINS W/ FOLIC ACID TABLET (FP) PO SCH (10:39)
[2019-03-05] MEDS: METHOCARBAMOL 500 MG TABLET PO PRN (10:41)
[2019-03-05] MEDS: clonazePAM 0.5 MG TABLET PO PRN ×2 (10:42→22:20)
[2019-03-05 11:57] LABS: HEMATOCRIT 41.6 % (35.4-49); HEMOGLOBIN 14.1 GM/dL (11.7-16.9); MCH 28.3 pg (25.7-33.7); MCHC 33.9 g/dl (32.0-35.9); MEAN CELL VOLUME 83.6 fl (80-96); MEAN PLT VOLUME 7.5 fl (7.5-11.1); PLATELET COUNT 289 K/MM3 (134-434); RBC 4.98 M/mm3 (4.00-5.60); RDW 14.1 % (11.9-15.9); WHITE BLOOD COUNT 4.4 K/mm3 (4.0-10.0)
[2019-03-05 12:17] LABS: ALBUMIN 3.1 g/dl (3.4-5.0); BILIRUBIN,TOTAL 0.3 mg/dL (0.2-1); BLOOD UREA NITROGEN 8.5 mg/dL (7-18); CALCIUM 8.8 mg/dL (8.5-10.1); CREATININE 0.8 mg/dL (0.55-1.3); POTASSIUM 4.2 mmol/L (3.5-5.1); TOT PROT 6.2 g/dl (6.4-8.2)
--- NOTE | 2019-03-05 14:53 | PN ---
[facility] CIWA - CIWA Score Nausea/Vomitin-No Nausea/No Vomiting Muscle Tremors: 3 Anxiety: 3 Agitation: 0-Normal Activity Paroxysmal Sweats: 3 Orientation: 0-Oriented Tacttile Disturbances: 2-Mild Itch/Numbness/Burn Auditory Disturbances: 0-None Visual Disturbances: 0-None Headache: 0-None Present CIWA-Ar Total Score: 11 S COWS - Scale Resting Pulse: 0= [place] 80 or Below Sweatin= Chills/Flushing Restless Observation: 0= Sits Still Pupil Size: 0= Normal to Room Light Bone or Joint Aches: 2= Severe Diffuse Aches Runny Nose/ Eye Tearin= None GI Upset > 30mins: 0= None Tremor Observation of Outstretched Hands: 2= Slight Tremor Visible Yawning Observation: 1= 1-2x During Session Anxiety or Irritability: 2=Irritable/Anxious Goose Flesh Skin: 3=Piloerection COWS Score: 11 [facility] Progress Note (SOAP) Subjective: Anxious, Sweating, Tremors, Body Aches. Objective: PATIENT A & O X 3. IN NO ACUTE DISTRESS. 03/05/19 14:55 Vital Signs Temperature 98.1 F 03/05/19 13:38 Pulse Rate 68 03/05/19 13:38 Respiratory Rate 16 03/05/19 13:38 Blood Pressure 105/72 03/05/19 13:38 O2 Sat by Pulse Oximetry (%) Laboratory Tests 03/05/19 03/05/19 03/05/19 08:20 08:20 08:20 WBC 4.4 RBC 4.98 Hgb 14.1 Hct 41.6 MCV 83.6 MCH 28.3 MCHC 33.9 RDW 14.1 Plt Count 289 MPV 7.5 Sodium 142 Potassium 4.2 Chloride 106 Carbon Dioxide 30 Anion Gap 6 L BUN 8.5 Creatinine 0.8 Est GFR (CKD-EPI)AfAm 142.89 Est GFR (CKD-EPI)NonAf 123.29 Random Glucose 94 Calcium 8.8 Total Bilirubin 0.3 AST 13 L ALT 15 Alkaline Phosphatase 70 Total Protein 6.2 L Albumin 3.1 L RPR Titer Nonreactive LABS NOTED. Assessment: 03/05/19 14:56 WITHDRAWAL SYMPTOMS. Plan: CONTINUE DETOX.
[2019-03-05] MEDS: THIAMINE HCL 100 MG TABLET (FP) PO SCH (22:20)
[2019-03-06] MEDS ORDERED: METHADONE HCL 10 MG TABLET (FOR DETOX USE ONLY) PO ONE (10:00)
[2019-03-06] MEDS: METHOCARBAMOL 500 MG TABLET PO PRN ×2 (10:33→22:23)
[2019-03-06] MEDS: clonazePAM 0.5 MG TABLET PO PRN ×2 (10:33→22:23)
[2019-03-06] MEDS: PRENATAL VITAMINS W/ FOLIC ACID TABLET (FP) PO SCH (10:33)
--- NOTE | 2019-03-06 15:11 | PN ---
[facility] CIWA - CIWA Score Nausea/Vomitin-No Nausea/No Vomiting Muscle Tremors: 2 Anxiety: 3 Agitation: 3 Paroxysmal Sweats: 3 Orientation: 0-Oriented Tacttile Disturbances: 0-None Auditory Disturbances: 0-None Visual Disturbances: 2-Mild Sensitivity Headache: 0-None Present CIWA-Ar Total Score: 13 S COWS - Scale Resting Pulse: 0= [place] 80 or Below Sweatin= Chills/Flushing Restless Observation: 1= Difficult to Sit Still Pupil Size: 0= Normal to Room Light Bone or Joint Aches: 1= Mild Discomfort Runny Nose/ Eye Tearin= None GI Upset > 30mins: 0= None Tremor Observation of Outstretched Hands: 2= Slight Tremor Visible Yawning Observation: 1= 1-2x During Session Anxiety or Irritability: 2=Irritable/Anxious Goose Flesh Skin: 0=Smooth Skin COWS Score: 8 [facility] Progress Note (SOAP) Subjective: Anxious, Tremors, Body Aches. Patient reports That Current withdrawal Detox Symptoms in General Are Gradually Subsiding in Severity. Objective: PATIENT A & O X 3, OBSERVED AMBULATING ON DETOX UNIT UNASSISTED. IN NO ACUTE DISTRESS. 03/06/19 15:09 Vital Signs Temperature 98.8 F 03/06/19 13:30 Pulse Rate 67 03/06/19 13:30 Respiratory Rate 18 03/06/19 13:30 Blood Pressure 119/77 03/06/19 13:30 O2 Sat by Pulse Oximetry (%) Laboratory Tests 03/05/19 03/05/19 03/05/19 08:20 08:20 08:20 WBC 4.4 RBC 4.98 Hgb 14.1 Hct 41.6 MCV 83.6 MCH 28.3 MCHC 33.9 RDW 14.1 Plt Count 289 MPV 7.5 Sodium 142 Potassium 4.2 Chloride 106 Carbon Dioxide 30 Anion Gap 6 L BUN 8.5 Creatinine 0.8 Est GFR (CKD-EPI)AfAm 142.89 Est GFR (CKD-EPI)NonAf 123.29 Random Glucose 94 Calcium 8.8 Total Bilirubin 0.3 AST 13 L ALT 15 Alkaline Phosphatase 70 Total Protein 6.2 L Albumin 3.1 L RPR Titer Nonreactive LABS NOTED. Assessment: 03/06/19 15:10 WITHDRAWAL SYMPTOMS. Plan: CONTINUE DETOX. PATIENT SCHEDULED FOR D/C FROM DETOX UNIT TOMORROW.
[2019-03-06] MEDS: THIAMINE HCL 100 MG TABLET (FP) PO SCH (22:21)
[2019-03-07] MEDS ORDERED: METHADONE HCL 5 MG TABLET (FOR DETOX USE ONLY) PO ONE (06:00)
[2019-03-07 09:57] VITALS: BP 92/50; PULSE 69; TEMP 98.4
[2019-03-07] MEDS: PRENATAL VITAMINS W/ FOLIC ACID TABLET (FP) PO SCH (10:32)
[2019-03-07] MEDS: clonazePAM 0.5 MG TABLET PO PRN (10:34)
--- NOTE | 2019-03-07 14:26 | DS ---
[facility] Detox Discharge Summary Admission Date: 03/04/19 Discharge Date: 03/07/19 - History Present History: Alcohol Dependence, Opioid Dependence Additional Comments: 28 years old male [address] [facility] admission was admitted on 03/04/19 for alcohol and opiate withdrawal sx management did well with klonopin prn and methadone detox regimen no complication through out the detox stay alert oriented x 3 cardiac S1S2 regular rate rhythm respiratory clear lung bilaterally on auscultation denies dizziness no shortness of breath - Physical Exam Results Vital Signs: Vital Signs Temperature 98.4 F 03/07/19 09:56 Pulse Rate 69 03/07/19 09:56 Respiratory Rate 18 03/07/19 09:56 Blood Pressure 92/50 L 03/07/19 09:56 O2 Sat by Pulse Oximetry (%) Pertinent Admission Physical Exam Findings: alcohol and opiate withdrawal sx Laboratory Last Values WBC 4.4 K/mm3 (4.0-10.0) 03/05/19 08:20 RBC 4.98 M/mm3 (4.00-5.60) 03/05/19 08:20 Hgb 14.1 GM/dL (11.7-16.9) 03/05/19 08:20 Hct 41.6 % (35.4-49) 03/05/19 08:20 MCV 83.6 fl (80-96) 03/05/19 08:20 MCH 28.3 pg (25.7-33.7) 03/05/19 08:20 MCHC 33.9 g/dl (32.0-35.9) 03/05/19 08:20 RDW 14.1 % (11.9-15.9) 03/05/19 08:20 Plt Count 289 K/MM3 (134-434) 03/05/19 08:20 MPV 7.5 fl (7.5-11.1) 03/05/19 08:20 Sodium 142 mmol/L (136-145) 03/05/19 08:20 Potassium 4.2 mmol/L (3.5-5.1) 03/05/19 08:20 Chloride 106 mmol/L (98-107) 03/05/19 08:20 Carbon Dioxide 30 mmol/L (21-32) 03/05/19 08:20 Anion Gap 6 MMOL/L (8-16) L 03/05/19 08:20 BUN 8.5 mg/dL (7-18) 03/05/19 08:20 Creatinine 0.8 mg/dL (0.55-1.3) 03/05/19 08:20 Est GFR (CKD-EPI)AfAm 142.89 03/05/19 08:20 Est GFR (CKD-EPI)NonAf 123.29 03/05/19 08:20 Random Glucose 94 mg/dL (74-106) 03/05/19 08:20 Calcium 8.8 mg/dL (8.5-10.1) 03/05/19 08:20 Total Bilirubin 0.3 mg/dL (0.2-1) 03/05/19 08:20 AST 13 U/L (15-37) L 03/05/19 08:20 ALT 15 U/L (13-61) 03/05/19 08:20 Alkaline Phosphatase 70 U/L (45-117) 03/05/19 08:20 Total Protein 6.2 g/dl (6.4-8.2) L 03/05/19 08:20 Albumin 3.1 g/dl (3.4-5.0) L 03/05/19 08:20 RPR Titer Nonreactive (NONREACTIVE) 03/05/19 08:20 labnoted - Treatment Hospital Course: Detox Protocol Followed, Detoxed Safely, Responded well, Discharged Condition Good, Rehab Referral Accepted Patient has Accepted a [facility] Referral [facility]: [facility] - Medication Discharge Medications: Ambulatory Orders NK [No Known Home Medication] 03/04/19 - Diagnosis (1) Nicotine dependence Status: Acute Qualifiers: Nicotine product type: cigarettes Substance use status: in withdrawal Qualified Code(s): F17.213 - Nicotine dependence, cigarettes, with withdrawal (2) Benzodiazepine abuse Status: Acute (3) Heroin dependence Status: Acute - AMA Did Patient Leave Against Medical Advice: No
== END 2019-03-07 13:06 | disposition home or self-care (01) | DRG 773 ==
LOC: YASAS 13:22 → Y3N 20:40
PROVIDERS: ADMIT Surgery; ATTEND Surgery
PROC: HZ2ZZZZ Detoxification Services for Substance Abuse Treatment (ICD-10-PCS; principal; 2019-03-04)
DX: F11.23 Opioid dependence with withdrawal (principal); F13.10 Sedative, hypnotic or anxiolytic abuse, uncomplicated; F14.20 Cocaine dependence, uncomplicated; F17.213 Nicotine dependence, cigarettes, with withdrawal; Z59.0 Homelessness
CPT/HCPCS: 36415; 80053; 85027; 86593

== ENCOUNTER 2020-12-27 14:05 | Inpatient (IN) | payer BC ==
[2020-12-27 16:10] VITALS: BMI 21.1
[2020-12-27] MEDS ORDERED: IBUPROFEN 400 MG TABLET (FP) PO PRN (18:29)
[2020-12-27] MEDS ORDERED: MAGNESIUM HYDROX 2400MG/30ML ORAL SUSPENSION 30 ML CUP PO PRN (18:29)
[2020-12-27] MEDS ORDERED: P-EPHED 60MG/TRIPROLIDI 2.5MG TABLET PO PRN (18:29)
[2020-12-27] MEDS ORDERED: MAGNESIUM CITRATE 300 ML BOTTLE PO PRN (18:29)
[2020-12-27] MEDS ORDERED: ONDANSETRON *ODT* 4 MG TABLET SL PRN (18:29)
[2020-12-27] MEDS ORDERED: ACETAMINOPHEN 325 MG TABLET (FP) PO PRN ×2 (18:29)
[2020-12-27] MEDS ORDERED: METHOCARBAMOL 500 MG TABLET PO PRN (18:29)
[2020-12-27] MEDS ORDERED: BISMUTH SUBSALICYLATE 524 MG/30 ML PO PRN (18:29)
[2020-12-27] MEDS ORDERED: hydrOXYzine PAMOATE 25 MG CAPSULE (FP) PO PRN (18:29)
[2020-12-27] MEDS ORDERED: MENTHOL/PHENOL 1 EACH UD MM PRN (18:29)
[2020-12-27] MEDS ORDERED: MAG HYDROX/AL HYDROX/SIMETH 30 ML UNIT-DOSE CUP PO PRN (18:29)
[2020-12-27] MEDS ORDERED: cloNIDine HCL 0.1 MG TABLET PO PRN (18:31)
[2020-12-27] MEDS: MELATONIN 5 MG TABLETS PO SCH (22:50)
[2020-12-27] MEDS: THIAMINE HCL 100 MG TABLET (FP) PO SCH (22:50)
[2020-12-28] MEDS ORDERED: BUPRENORPHINE/NALOXONE 4 MG/1 MG FILM PACKET SL ONE (10:00)
[2020-12-28] MEDS: PRENATAL VITAMINS W/ FOLIC ACID TABLET (FP) PO SCH (10:24)
[2020-12-28 10:50] LABS: HEMATOCRIT 44.8 % (35.4-49); HEMOGLOBIN 15.8 GM/dL (11.7-16.9); MCH 28.8 pg (25.7-33.7); MCHC 35.2 g/dl (32.0-35.9); MEAN PLT VOLUME 7.6 fl (7.5-11.1); PLATELET COUNT 249 10^3/uL (134-434); RBC 5.46 M/mm3 (4.00-5.60); RDW 14.7 % (11.9-15.9); WHITE BLOOD COUNT 5.5 K/mm3 (4.0-10.0)
[2020-12-28 10:59] LABS: CALCIUM 8.9 mg/dL (8.5-10.1)
[2020-12-28 11:00] LABS: ALBUMIN 3.7 g/dl (3.4-5.0); BLOOD UREA NITROGEN 9.5 mg/dL (7-18)
[2020-12-28 11:03] LABS: CREATININE 0.7 mg/dL (0.55-1.3)
[2020-12-28 11:04] LABS: BILIRUBIN,TOTAL 0.5 mg/dL (0.2-1)
[2020-12-28 11:05] LABS: TOT PROT 7.1 g/dl (6.4-8.2)
[2020-12-28 11:55] LABS: HIV INTERPRETATION NEGATIVE (NEGATIVE)
[2020-12-28] MEDS ORDERED: BUPRENORPHINE/NALOXONE 2 MG/0.5 MG FILM PACKET SL ONE (18:36)
[2020-12-28] MEDS: MELATONIN 5 MG TABLETS PO SCH (22:09)
[2020-12-28] MEDS: THIAMINE HCL 100 MG TABLET (FP) PO SCH (22:09)
[2020-12-29] MEDS ORDERED: BUPRENORPHINE/NALOXONE 4 MG/1 MG FILM PACKET SL PRN ×2 (00:32→15:00)
[2020-12-29] MEDS ORDERED: BUPRENORPHINE/NALOXONE 12 MG-3 MG SL FILM PACKET SL ONE (09:00)
[2020-12-29 09:29] VITALS: BP 105/59; PULSE 72; TEMP 96.9
[2020-12-29] MEDS: PRENATAL VITAMINS W/ FOLIC ACID TABLET (FP) PO SCH (10:17)
[2020-12-30] MEDS ORDERED: BUPRENORPHINE/NALOXONE 4 MG/1 MG FILM PACKET SL ONE (10:00)
[2020-12-31] MEDS ORDERED: BUPRENORPHINE/NALOXONE 2 MG/0.5 MG FILM (DETOX) SL ONE (21:00)
[2021-01-01] MEDS ORDERED: BUPRENORPHINE/NALOXONE 4 MG/1 MG FILM (DETOX) SL ONE (06:00)
== END 2020-12-29 10:52 | disposition home or self-care (01) | DRG 773 ==
LOC: YASAS 14:05 → Y3N 19:10
PROVIDERS: ADMIT Allergy & Immunology; ATTEND Allergy & Immunology
PROC: HZ2ZZZZ Detoxification Services for Substance Abuse Treatment (ICD-10-PCS; principal; 2020-12-27)
DX: F11.23 Opioid dependence with withdrawal (principal)
CPT/HCPCS: 36415; 80053; 85027; 86780; 87389; C9803; U0003; U0005

== ENCOUNTER 2021-03-31 12:13 | Inpatient (IN) | payer BC ==
[2021-03-31 16:45] VITALS: BMI 21.1
[2021-03-31] MEDS ORDERED: MAGNESIUM CITRATE 300 ML BOTTLE PO PRN (17:48)
[2021-03-31] MEDS ORDERED: NICOTINE 10 MG CARTRIDGE (INHALER) IH PRN (17:48)
[2021-03-31] MEDS ORDERED: P-EPHED 60MG/TRIPROLIDI 2.5MG TABLET PO PRN (17:48)
[2021-03-31] MEDS ORDERED: IBUPROFEN 400 MG TABLET (FP) PO PRN (17:48)
[2021-03-31] MEDS ORDERED: MENTHOL/PHENOL 1 EACH UD MM PRN (17:48)
[2021-03-31] MEDS ORDERED: guaiFENesin 200 MG/10 ML 10 ML UNIT-DOSE CUPS PO PRN (17:48)
[2021-03-31] MEDS ORDERED: NALOXONE HCL 0.4 MG/ML VIAL IM PRN (17:48)
[2021-03-31] MEDS ORDERED: cloNIDine HCL 0.1 MG TABLET PO PRN (17:48)
[2021-03-31] MEDS ORDERED: DICYCLOMINE HCL 10 MG CAPSULE PO PRN (17:48)
[2021-03-31] MEDS ORDERED: MAGNESIUM HYDROX 2400MG/30ML ORAL SUSPENSION 30 ML CUP PO PRN (17:48)
[2021-03-31] MEDS ORDERED: NALOXONE (NARCAN) HCL 4 MG/0.1 ML SPRAY NS PRN (17:48)
[2021-03-31] MEDS ORDERED: ACETAMINOPHEN 325 MG TABLET (FP) PO PRN ×2 (17:48)
[2021-03-31] MEDS ORDERED: BISMUTH SUBSALICYLATE 524 MG/30 ML PO PRN (17:48)
[2021-03-31] MEDS ORDERED: methaDONE HCL 10 MG TABLET (FOR DETOX USE ONLY) PO ONE (17:48)
[2021-03-31] MEDS ORDERED: METHOCARBAMOL 500 MG TABLET PO PRN (17:48)
[2021-03-31] MEDS ORDERED: MAG HYDROX/AL HYDROX/SIMETH 30 ML UNIT-DOSE CUP PO PRN (17:48)
[2021-03-31] MEDS ORDERED: methaDONE HCL 10 MG TABLET (FOR DETOX USE ONLY) ONE (23:11)
[2021-03-31] MEDS: THIAMINE HCL 100 MG TABLET (FP) PO SCH (23:14)
[2021-03-31] MEDS: MELATONIN 5 MG TABLETS PO SCH (23:14)
[2021-04-01] MEDS ORDERED: methaDONE HCL 10 MG TABLET (FOR DETOX USE ONLY) ONE (10:55)
[2021-04-01] MEDS: NICOTINE 14 MG/24 HOURS TOPICAL PATCH TD SCH (10:59)
[2021-04-01] MEDS: PRENATAL VITAMINS W/ FOLIC ACID TABLET (FP) PO SCH (10:59)
[2021-04-01] MEDS ORDERED: TUBERCULIN PPD 5 TU/0.1ML SYRINGE (IN PATIENT USE ONLY) ID ONE (15:15)
[2021-04-01] MEDS: MELATONIN 5 MG TABLETS PO SCH (22:29)
[2021-04-01] MEDS: THIAMINE HCL 100 MG TABLET (FP) PO SCH (22:29)
[2021-04-02] MEDS ORDERED: diazePAM 5 MG TABLET PO PRN (08:01)
[2021-04-02] MEDS ORDERED: methaDONE HCL 10 MG TABLET (FOR DETOX USE ONLY) PO ONE (10:00)
[2021-04-02] MEDS: PRENATAL VITAMINS W/ FOLIC ACID TABLET (FP) PO SCH (10:20)
[2021-04-02] MEDS: NICOTINE 14 MG/24 HOURS TOPICAL PATCH TD SCH (10:22)
[2021-04-02 10:28] LABS: HEMATOCRIT 44.8 % (35.4-49); HEMOGLOBIN 15.7 GM/dL (11.7-16.9); MCH 29.2 pg (25.7-33.7); MEAN CELL VOLUME 83.4 fl (80-96); MEAN PLT VOLUME 7.4 fl (7.5-11.1); PLATELET COUNT 286 10^3/uL (134-434); RBC 5.38 M/mm3 (4.00-5.60)
[2021-04-02 10:41] LABS: BLOOD UREA NITROGEN 11.7 mg/dL (7-18)
[2021-04-02 10:43] LABS: ALBUMIN 3.2 g/dl (3.4-5.0); CALCIUM 8.5 mg/dL (8.5-10.1)
[2021-04-02 10:47] LABS: CREATININE 0.7 mg/dL (0.55-1.3)
[2021-04-02 10:48] LABS: BILIRUBIN,TOTAL 0.5 mg/dL (0.2-1); TOT PROT 6.6 g/dl (6.4-8.2)
[2021-04-02] MEDS: THIAMINE HCL 100 MG TABLET (FP) PO SCH (22:49)
[2021-04-02] MEDS: MELATONIN 5 MG TABLETS PO SCH (22:49)
[2021-04-03] MEDS ORDERED: methaDONE HCL 10 MG TABLET (FOR DETOX USE ONLY) ONE (09:42)
[2021-04-03] MEDS: NICOTINE 14 MG/24 HOURS TOPICAL PATCH TD SCH (10:32)
[2021-04-03] MEDS: PRENATAL VITAMINS W/ FOLIC ACID TABLET (FP) PO SCH (10:33)
[2021-04-03] MEDS: THIAMINE HCL 100 MG TABLET (FP) PO SCH (22:35)
[2021-04-03] MEDS: MELATONIN 5 MG TABLETS PO SCH (22:35)
[2021-04-04] MEDS ORDERED: methaDONE HCL 10 MG TABLET (FOR DETOX USE ONLY) PO ONE (10:00)
[2021-04-04] MEDS: PRENATAL VITAMINS W/ FOLIC ACID TABLET (FP) PO SCH (10:18)
[2021-04-04] MEDS: NICOTINE 14 MG/24 HOURS TOPICAL PATCH TD SCH (10:18)
[2021-04-04] MEDS: MELATONIN 5 MG TABLETS PO SCH (22:33)
[2021-04-04] MEDS: THIAMINE HCL 100 MG TABLET (FP) PO SCH (22:34)
[2021-04-05 09:12] VITALS: BP 94/59; PULSE 67; TEMP 96.8
[2021-04-05] MEDS: PRENATAL VITAMINS W/ FOLIC ACID TABLET (FP) PO SCH (10:39)
[2021-04-05] MEDS: NICOTINE 14 MG/24 HOURS TOPICAL PATCH TD SCH (10:39)
== END 2021-04-05 11:28 | disposition other institution (70) | DRG 773 ==
LOC: YASAS 12:13 → Y3N 04-01 11:46
PROVIDERS: ADMIT Allergy & Immunology; ATTEND Allergy & Immunology
PROC: HZ2ZZZZ Detoxification Services for Substance Abuse Treatment (ICD-10-PCS; principal; 2021-04-01)
DX: F11.23 Opioid dependence with withdrawal (principal); F15.10 Other stimulant abuse, uncomplicated; F17.210 Nicotine dependence, cigarettes, uncomplicated; R45.89 Other symptoms and signs involving emotional state; Z59.00 Homelessness unspecified
CPT/HCPCS: 36415; 80053; 85027; 86780; C9803; U0003; U0005

== ENCOUNTER 2021-04-05 11:41 | Inpatient (IN) | payer BC ==
[2021-04-05] MEDS ORDERED: MAGNESIUM HYDROX 2400MG/30ML ORAL SUSPENSION 30 ML CUP PO PRN (12:32)
[2021-04-05] MEDS ORDERED: MENTHOL/PHENOL 1 EACH UD MM PRN (12:32)
[2021-04-05] MEDS ORDERED: ACETAMINOPHEN 325 MG TABLET (FP) PO PRN (12:32)
[2021-04-05] MEDS ORDERED: MAGNESIUM CITRATE 300 ML BOTTLE PO PRN (12:32)
[2021-04-05] MEDS ORDERED: LOPERAMIDE HCL 2 MG CAPSULE PO PRN (12:32)
[2021-04-05] MEDS ORDERED: P-EPHED 60MG/TRIPROLIDI 2.5MG TABLET PO PRN (12:32)
[2021-04-05] MEDS ORDERED: guaiFENesin 200 MG/10 ML 10 ML UNIT-DOSE CUPS PO PRN (12:32)
[2021-04-05] MEDS ORDERED: MAG HYDROX/AL HYDROX/SIMETH 30 ML UNIT-DOSE CUP PO PRN (12:32)
[2021-04-05] MEDS ORDERED: IBUPROFEN 400 MG TABLET (FP) PO PRN (12:32)
[2021-04-05] MEDS ORDERED: NICOTINE 10 MG CARTRIDGE (INHALER) IH PRN (12:32)
[2021-04-05 12:48] VITALS: BP 107/72; PULSE 66; TEMP 98.1
[2021-04-05 12:52] VITALS: BMI 20.6
[2021-04-05] MEDS: MELATONIN 5 MG TABLETS PO SCH (22:22)
[2021-04-05] MEDS: THIAMINE HCL 100 MG TABLET (FP) PO SCH (22:22)
[2021-04-06] MEDS ORDERED: NICOTINE 7 MG/24 HOURS TOPICAL PATCH TD SCH (10:00)
[2021-04-06] MEDS: NICOTINE 14 MG/24 HOURS TOPICAL PATCH TD SCH (10:49)
[2021-04-06] MEDS: PRENATAL VITAMINS W/ FOLIC ACID TABLET (FP) PO SCH (10:49)
[2021-04-06] MEDS: MELATONIN 5 MG TABLETS PO SCH (22:17)
[2021-04-06] MEDS: THIAMINE HCL 100 MG TABLET (FP) PO SCH (22:17)
[2021-04-07] MEDS: NICOTINE 14 MG/24 HOURS TOPICAL PATCH TD SCH (10:35)
[2021-04-07] MEDS: PRENATAL VITAMINS W/ FOLIC ACID TABLET (FP) PO SCH (10:35)
[2021-04-07] MEDS: hydrOXYzine PAMOATE 25 MG CAPSULE (FP) PO PRN (15:45)
[2021-04-07] MEDS: MELATONIN 5 MG TABLETS PO SCH (23:05)
[2021-04-07] MEDS: THIAMINE HCL 100 MG TABLET (FP) PO SCH (23:06)
[2021-04-08] MEDS: PRENATAL VITAMINS W/ FOLIC ACID TABLET (FP) PO SCH (10:22)
[2021-04-08] MEDS: NICOTINE 14 MG/24 HOURS TOPICAL PATCH TD SCH (10:23)
[2021-04-08] MEDS: hydrOXYzine PAMOATE 25 MG CAPSULE (FP) PO PRN (10:23)
[2021-04-08] MEDS: MELATONIN 5 MG TABLETS PO SCH (22:13)
[2021-04-08] MEDS: THIAMINE HCL 100 MG TABLET (FP) PO SCH (22:13)
[2021-04-09] MEDS: PRENATAL VITAMINS W/ FOLIC ACID TABLET (FP) PO SCH (09:52)
[2021-04-09] MEDS: NICOTINE 14 MG/24 HOURS TOPICAL PATCH TD SCH (09:52)
== END 2021-04-09 11:12 | disposition left against medical advice (07) | DRG 770 ==
LOC: YASAS 11:41 → Y3W 11:42
PROVIDERS: ADMIT Allergy & Immunology; ATTEND Allergy & Immunology
PROC: HZ42ZZZ Group Counseling for Substance Abuse Treatment, Cognitive-Behavioral (ICD-10-PCS; principal; 2021-04-05)
DX: F11.20 Opioid dependence, uncomplicated (principal); F13.20 Sedative, hypnotic or anxiolytic dependence, uncomplicated; F15.20 Other stimulant dependence, uncomplicated; F17.210 Nicotine dependence, cigarettes, uncomplicated

== ENCOUNTER 2021-11-20 16:34 | Inpatient (IN) | payer OTHER ==
[2021-11-20 18:22] VITALS: BMI 21.1
[2021-11-20] MEDS ORDERED: P-EPHED 60MG/TRIPROLIDI 2.5MG TABLET PO PRN (18:45)
[2021-11-20] MEDS ORDERED: NICOTINE POLACRILEX 2 MG GUM BUC PRN (18:45)
[2021-11-20] MEDS ORDERED: IBUPROFEN 400 MG TABLET (FP) PO PRN (18:45)
[2021-11-20] MEDS ORDERED: MAG HYDROX/AL HYDROX/SIMETH 30 ML UNIT-DOSE CUP PO PRN (18:45)
[2021-11-20] MEDS ORDERED: ONDANSETRON *ODT* 4 MG TABLET SL PRN (18:45)
[2021-11-20] MEDS ORDERED: LOPERAMIDE HCL 2 MG CAPSULE PO PRN (18:45)
[2021-11-20] MEDS ORDERED: MAGNESIUM CITRATE 300 ML BOTTLE PO PRN (18:45)
[2021-11-20] MEDS ORDERED: BENZOCAINE/MENTHOL (CHLORASEPTIC ) LOZENGE MM PRN (18:45)
[2021-11-20] MEDS ORDERED: METHOCARBAMOL 500 MG TABLET PO PRN (18:45)
[2021-11-20] MEDS ORDERED: MAGNESIUM HYDROX 2400MG/30ML ORAL SUSPENSION 30 ML CUP PO PRN (18:45)
[2021-11-20] MEDS ORDERED: BISMUTH SUBSALICYLATE 524 MG/30 ML PO PRN (18:45)
[2021-11-20] MEDS ORDERED: DICYCLOMINE HCL 10 MG CAPSULE PO PRN (18:45)
[2021-11-20] MEDS ORDERED: ACETAMINOPHEN 325 MG TABLET (FP) PO PRN ×2 (18:45)
[2021-11-20] MEDS ORDERED: diazePAM 5 MG TABLET PO PRN (18:47)
[2021-11-21] MEDS: MELATONIN 5 MG TABLETS PO SCH ×2 (00:01→23:12)
[2021-11-21] MEDS: THIAMINE HCL 100 MG TABLET (FP) PO SCH ×2 (00:02→23:12)
[2021-11-21] MEDS: hydrOXYzine PAMOATE 25 MG CAPSULE (FP) PO PRN (00:03)
[2021-11-21] MEDS ORDERED: cloNIDine HCL 0.1 MG TABLET PO PRN (09:30)
[2021-11-21] MEDS ORDERED: methaDONE HCL 10 MG TABLET (FOR DETOX USE ONLY) PO ONE (10:00)
[2021-11-21] MEDS: PRENATAL VITAMINS W/ FOLIC ACID TABLET (FP) PO SCH (10:19)
[2021-11-21] MEDS: diazePAM 5 MG TABLET PO SCH ×3 (10:20→23:13)
[2021-11-21 10:57] LABS: HEMATOCRIT 46.7 % (35.4-49); HEMOGLOBIN 15.9 GM/dL (11.7-16.9); MCH 28.4 pg (25.7-33.7); MCHC 34.1 g/dl (32.0-35.9); MEAN CELL VOLUME 83.2 fl (80-96); MEAN PLT VOLUME 7.3 fl (7.5-11.1); PLATELET COUNT 319 10^3/uL (134-434); RBC 5.61 M/mm3 (4.00-5.60); RDW 13.2 % (11.9-15.9); WHITE BLOOD COUNT 3.8 K/mm3 (4.0-10.0)
[2021-11-21 11:05] LABS: ALBUMIN 3.3 g/dl (3.4-5.0); BLOOD UREA NITROGEN 13.9 mg/dL (7-18)
[2021-11-21 11:07] LABS: CALCIUM 8.9 mg/dL (8.5-10.1)
[2021-11-21 11:11] LABS: CREATININE 0.7 mg/dL (0.55-1.3)
[2021-11-21 11:12] LABS: TOT PROT 6.5 g/dl (6.4-8.2)
[2021-11-21 11:14] LABS: BILIRUBIN,TOTAL 0.4 mg/dL (0.2-1)
[2021-11-22] MEDS: diazePAM 5 MG TABLET PO SCH ×4 (07:01→23:31)
[2021-11-22] MEDS ORDERED: methaDONE HCL 10 MG TABLET (FOR DETOX USE ONLY) ONE (09:17)
[2021-11-22] MEDS: PRENATAL VITAMINS W/ FOLIC ACID TABLET (FP) PO SCH (10:10)
[2021-11-22] MEDS: THIAMINE HCL 100 MG TABLET (FP) PO SCH (23:32)
[2021-11-22] MEDS: MELATONIN 5 MG TABLETS PO SCH (23:32)
[2021-11-23] MEDS: diazePAM 5 MG TABLET PO SCH ×3 (06:55→23:01)
[2021-11-23] MEDS ORDERED: methaDONE HCL 10 MG TABLET (FOR DETOX USE ONLY) PO ONE (10:00)
[2021-11-23] MEDS: PRENATAL VITAMINS W/ FOLIC ACID TABLET (FP) PO SCH (10:57)
[2021-11-23] MEDS: diazePAM 5 MG TABLET PO PRN (10:58)
[2021-11-23] MEDS: hydrOXYzine PAMOATE 25 MG CAPSULE (FP) PO PRN (15:06)
[2021-11-23] MEDS: THIAMINE HCL 100 MG TABLET (FP) PO SCH (23:00)
[2021-11-23] MEDS: MELATONIN 5 MG TABLETS PO SCH (23:01)
[2021-11-24] MEDS: diazePAM 5 MG TABLET PO SCH ×2 (06:53→17:48)
[2021-11-24] MEDS ORDERED: methaDONE HCL 10 MG TABLET (FOR DETOX USE ONLY) ONE (08:51)
[2021-11-24] MEDS: diazePAM 5 MG TABLET PO PRN (08:53)
[2021-11-24] MEDS: PRENATAL VITAMINS W/ FOLIC ACID TABLET (FP) PO SCH (10:48)
[2021-11-24] MEDS: THIAMINE HCL 100 MG TABLET (FP) PO SCH (22:39)
[2021-11-24] MEDS: MELATONIN 5 MG TABLETS PO SCH (22:39)
[2021-11-25] MEDS ORDERED: diazePAM 5 MG TABLET PO ONE (06:00)
[2021-11-25] MEDS ORDERED: methaDONE HCL 10 MG TABLET (FOR DETOX USE ONLY) PO ONE (10:00)
[2021-11-25] MEDS: PRENATAL VITAMINS W/ FOLIC ACID TABLET (FP) PO SCH (10:56)
[2021-11-25] MEDS: THIAMINE HCL 100 MG TABLET (FP) PO SCH (22:18)
[2021-11-25] MEDS: MELATONIN 5 MG TABLETS PO SCH (22:18)
[2021-11-26 09:03] VITALS: BP 112/70; PULSE 106; TEMP 97.3
== END 2021-11-26 09:52 | disposition home or self-care (01) | DRG 773 ==
LOC: YASAS 16:34 → Y3N 21:47 → UNDOADMIN 21:47
PROVIDERS: ADMIT Allergy & Immunology; ATTEND Allergy & Immunology
PROC: HZ2ZZZZ Detoxification Services for Substance Abuse Treatment (ICD-10-PCS; principal; 2021-11-20)
DX: F11.23 Opioid dependence with withdrawal (principal); F13.230 Sedative, hypnotic or anxiolytic dependence with withdrawal, uncomplicated; F12.20 Cannabis dependence, uncomplicated; F17.210 Nicotine dependence, cigarettes, uncomplicated; Z20.822 Contact with and (suspected) exposure to COVID-19; F13.20 Sedative, hypnotic or anxiolytic dependence, uncomplicated
CPT/HCPCS: 36415; 80053; 85027; 86780; C9803-CS; U0003; U0005